=== PATIENT | male | born 1955 | race Caucasian/White ===

== ENCOUNTER → 2017-12-04 | Outpatient (CLI) | payer BC ==
[2017-12-04 07:31] LABS: ALBUMIN 3.7 g/dL (3.4-5.0); ALKALINE PHOSPHATASE 52 U/L (46-116); CHOLESTEROL 148 mg/dL (<200); DIRECT BILIRUBIN 0.1 mg/dL (<0.1-0.3); HDL CHOLESTEROL 45 mg/dL (>40); LDL CHOLESTEROL 66 mg/dL (<100); SERUM ASSESSMENT Clear; SGOT 16 U/L (15-37); SGPT 23 U/L (30-65); TC:HDL 3.3 Ratio (Not establshd); TOTAL BILIRUBIN 0.4 mg/dL (<0.1-1.0); TOTAL PROTEIN 7.4 g/dL (6.4-8.2); TRIGLYCERIDE 188 mg/dL (<150); VLDL 38 mg/dL (<40)
== END ==
LOC: M.LAB 07:03
PROVIDERS: Internal Medicine Cardiovascular Disease
DX: E78.5 Hyperlipidemia, unspecified (principal)

== ENCOUNTER → 2017-12-21 | Outpatient (CLI) | payer BC ==
[2017-12-21 11:08] LABS: ALBUMIN 3.7 g/dL (3.4-5.0); CREATININE 1.1 mg/dL (0.6-1.3); POTASSIUM 3.8 mmol/L (3.5-5.1); TOTAL BILIRUBIN 0.4 mg/dL (<0.1-1.0); TOTAL PROTEIN 7.1 g/dL (6.4-8.2)
== END ==
LOC: M.LAB 10:32
PROVIDERS: Nurse Practitioner
DX: R06.02 Shortness of breath (principal); R53.83 Other fatigue

== ENCOUNTER → 2018-07-26 | Outpatient (CLI) | payer BC ==
[2018-07-26 09:32] LABS: CHOLESTEROL 119 mg/dL (<200); HDL CHOLESTEROL 39 mg/dL (>40); LDL CHOLESTEROL 51 mg/dL (<100); SERUM ASSESSMENT Clear; TC:HDL 3.1 Ratio (Not establshd); TRIGLYCERIDE 146 mg/dL (<150); VLDL 29 mg/dL (<40)
== END ==
LOC: M.LAB 08:51
PROVIDERS: Nurse Practitioner
DX: E78.5 Hyperlipidemia, unspecified (principal)

== ENCOUNTER → 2019-07-05 | Outpatient (CLI) | payer MEDICARE, BC | LOC: M.LAB 12:13 | DX: N40.1 Benign prostatic hyperplasia with lower urinary tract symptoms (principal); R35.1 Nocturia ==

== ENCOUNTER → 2019-07-11 | Outpatient (CLI) | payer MEDICARE ==
--- NOTE | 2019-07-11 16:17 | EXE ---
[place] [address] STRESS ECHOCARDIOGRAM Name: KATJAVALERIANO W Room: [facility]#: [id number] Admission: 07/11/19 Attend Phys: Reji Reynoso MD Discharge: Date of : 59 Date of Service: 07/11/19 1615 Report #: [id number] THIS REPORT FOR: cc: Lucy Mahan MD, Molly MD Liston, Michael J. MD [facility] ~ APPROVED REPORT Study performed: 07/11/2019 14:52:33 Exam: Dobutamine Stress Echo Indication: Chest pain , Cardiomyopathy, , CAD Patient Location: Out-Patient Stress Nurse: Shyanne Maloney RN Supervising Physician: Sohan Viera MD Ht: 6 ft 0 in HR: 62 bpm BP: 129/90 mmHg Medical History Cardiac Risk Factors: HTN, Hyperlipidemia, Tobacco History (Former) Procedure The patient underwent a Pharmacological Stress Test using Dobutamine. Blood pressure, heart rate, and EKG were monitored. An Echocardiogram was performed by hydroelectric systems technician in four stages in quad fashion. At peak stress, four selected images were obtained and placed side by side with resting images for comparison. Stress Test Details Stress Test: Pharmacological Stress Test using Dobutamine. Reason for pharmacologic stress test: physical limitation. HR Resting HR: 62 bpm Max Heart Rate (APMHR): 158 bpm Max HR Achieved: 145 bpm Target HR (85% APMHR): 134 bpm % of APMHR: 91 Recovery HR: 92 bpm HR response to stress: Normal HR response to stress BP Resting BP: 129/90 mmHg Max BP: 149/[place] [address] STRESS ECHOCARDIOGRAM Name: VALERIANO HIGHTOWER Room: [facility]#: [id number] Admission: 07/11/19 Attend Phys: Reji Reynoso MD Discharge: Date of : 59 Date of Service: 07/11/19 1615 Report #: [id number] Recovery BP: 149/88 mmHg BP response to stress: Normal blood pressure response to stress. ECG Resting ECG: Sinus Rhythm Stress ECG: Sinus Tachycardia ST Change: None Arrhythmia: VPC's Recovery ECG: Sinus Rhythm Recovery ST Change: None Recovery Arrhythmia: None Clinical Reason for Termination: Completed protocol The patient tolerated dobutamine infusion without significant cardiac symptoms. Stress ECG Conclusion Baseline twelve-lead EKG shows sinus rhythm without significant ST segment abnormality. EKGs obtained during and post dobutamine infusion show sinus rhythm and sinus tachycardia with no significant ST segment changes when compared to baseline. There are occasional unifocal premature ventricular contractions noted. Pre-Stress Echo The resting Echocardiogram showed normal left ventricular contractility with an estimated Ejection Fraction of about 60-65%. The resting echocardiogram demonstrated normal wall motion in all wall segments. Post-Stress Echo The stress Echocardiogram showed normal left ventricular contractility with an estimated Ejection Fraction of about >70%. Compared to rest, there were no stress-induced wall motion abnormalities. Clinical No clinical or ECG evidence for ischemia. Conclusion Clinical Response: Non-ischemic Stress ECG Response: Non-ischemic Stress Echo Images: [place] [address] STRESS ECHOCARDIOGRAM Name: KATJAVALERIANO W Room: [facility]#: [id number] Admission: 07/11/19 Attend Phys: Reji Reynoso MD Discharge: Date of : 59 Date of Service: 07/11/191614 Report #: [id number] Other Information Study Quality: Fair <ELECTRONICALLY SIGNED> By: Sohan Viera MD, FACC 07/11/19 161 14 14 Sohan Viera MD, FACC /INF
== END ==
LOC: M.CRD 14:27
DX: I25.10 Atherosclerotic heart disease of native coronary artery without angina pectoris (principal)

== ENCOUNTER → 2020-01-29 | Outpatient (CLI) | payer MEDICARE ==
[2020-01-29 09:27] LABS: CHOLESTEROL 175 mg/dL (<200); HDL CHOLESTEROL 38 mg/dL (>40); LDL CHOLESTEROL 116 mg/dL (<100); SERUM ASSESSMENT Clear; TC:HDL 4.6 Ratio (Not establshd); TRIGLYCERIDE 105 mg/dL (<150); VLDL 21 mg/dL (<40)
== END ==
LOC: M.LAB 08:56
PROVIDERS: ATTEND Internal Medicine Cardiovascular Disease
DX: E78.2 Mixed hyperlipidemia (principal)

== ENCOUNTER → 2020-05-28 | Outpatient (CLI) | payer MEDICARE ==
[2020-05-28 07:42] LABS: ALBUMIN 3.8 g/dL (3.4-5.0); ALKALINE PHOSPHATASE 61 U/L (46-116); ANION GAP 10 mmol/L (7-16); BUN 17 mg/dL (7-18); CALCIUM 9.3 mg/dL (8.5-10.1); CHLORIDE 105 mmol/L (98-107); CHOLESTEROL 254 mg/dL (<200); CO2 27 mmol/L (21-32); CREATININE 1.2 mg/dL (0.6-1.3); GLUCOSE 100 mg/dL (70-99); HDL CHOLESTEROL 50 mg/dL (>40); LDL CHOLESTEROL 181 mg/dL (<100); POTASSIUM 4.1 mmol/L (3.5-5.1); SERUM ASSESSMENT Clear; SGOT 14 U/L (15-37); SGPT 22 U/L (30-65); SODIUM 142 mmol/L (136-145); TC:HDL 5.1 Ratio (Not establshd); TOTAL BILIRUBIN 0.3 mg/dL (<0.1-1.0); TOTAL PROTEIN 7.3 g/dL (6.4-8.2); TRIGLYCERIDE 117 mg/dL (<150); VLDL 23 mg/dL (<40)
== END ==
LOC: M.LAB 06:39
PROVIDERS: ATTEND Internal Medicine Cardiovascular Disease
DX: I25.5 Ischemic cardiomyopathy (principal); E78.2 Mixed hyperlipidemia

== ENCOUNTER → 2020-12-06 | Outpatient (CLI) | payer MEDICARE ==
[2020-12-06 11:08] LABS: CHOLESTEROL 123 mg/dL (<200); HDL CHOLESTEROL 61 mg/dL (>40); LDL CHOLESTEROL 34 mg/dL (<100); TRIGLYCERIDE 144 mg/dL (<150); VLDL 29 mg/dL (<40)
[2020-12-06 11:10] LABS: SERUM ASSESSMENT Clear
== END ==
LOC: M.LAB 10:37
PROVIDERS: ATTEND Nurse Practitioner
DX: E78.2 Mixed hyperlipidemia (principal)